=== PATIENT | male | born 1965 | race Caucasian/White ===

== ENCOUNTER 2018-06-02 17:11 | Emergency (ER) | payer BC ==
[2018-06-02] MEDS ORDERED: ASPIRIN 81 MG CHEWABLE TABLET ONE (17:59)
[2018-06-02] MEDS ORDERED: LORazepam 2 MG/ML VIAL ONE (17:59)
[2018-06-02 18:01] LABS: Absolute Lymphocytes (CBC) 2.3 K/uL (0.7-4.9); Absolute Monocytes 0.7 K/uL (0.1-1.3); Absolute Neutrophil 4.6 K/uL (1.8-8.0); Basophils % 0.6 % (0-1.3); Eosinophils % 1.8 % (0-4.4); Hematocrit 41.9 % (39.6-49.0); Lymphocytes % 29.7 % (15.3-44.8); MPV 8.4 fL (7.6-11.3); Monocytes % 9.2 % (3.3-12.3); RBC Red Blood Cell Count 4.67 M/uL (4.33-5.43)
--- NOTE | 2018-06-02 18:03 | RAD REPORT ---
EXAM DESCRIPTION: RAD - Chest Single View - 06/02/2018 5:51 pm CLINICAL HISTORY: Chest pain COMPARISON: None. TECHNIQUE: AP portable chest image was obtained 1748 hours . FINDINGS: Lungs are clear. Heart and vasculature are normal. No measurable pleural effusion and no p neumothorax. No acute bony abnormality seen. Old left clavicle fracture hardware in place. No acute a ortic findings suspected. IMPRESSION: No acute cardiopulmonary process.
[2018-06-02 18:13] LABS: ALT/SGPT 28 U/L (12-78); AST/SGOT 24 U/L (15-37); Alkaline Phosphatase 99 U/L (45-117); BUN Blood Urea Nitrogen 12 mg/dL (7-18); Bicarbonate 27 mmol/L (21-32); Bilirubin Direct 0.1 mg/dL (0-0.2); Bilirubin Total 0.4 mg/dL (0.2-1.0); Glucose Level 90 mg/dL (74-106); Magnesium 2.2 mg/dL (1.8-2.4); NT PRO-BNP 23 pg/mL (<125); Potassium 3.7 mmol/L (3.5-5.1); Protein, Total 7.2 g/dL (6.4-8.2); Sodium Level 141 mmol/L (136-145); Troponin (Emerg Dept Use Only) < 0.02 ng/mL (0.0-0.045)
--- NOTE | 2018-06-02 20:43 | ER ---
Nurse's Notes [facility] Name: Chilango Baker Age: 53 yrs Sex: Male : 1965 Arrival Date: 06/02/2018 Time: 17:12 Bed 20 Private MD: Diagnosis: Chest pain, unspecified Presentation: 06/02 17:16 Presenting complaint: Patient states: left arm tingling started yesterday and today the sv chest pain started about 30 mins ago. Transition of care: patient was not received from another setting of care. Onset of symptoms was June 01, 2018. Care prior to arrival: None. 17:16 Method Of Arrival: Ambulatory sv 17:16 Acuity: GUANACO 3 sv Historical: - Allergies: 17:17 No Known Allergies; sv - PMHx: 17:17 Hypertension; sv - PSHx: 17:17 Cholecystectomy; sv - Immunization history:: Adult Immunizations up to date. - Social history:: Smoking status: unknown. Screenin:49 Abuse screen: Denies threats or abuse. Denies injuries from another. Nutritional ed1 screening: No deficits noted. Tuberculosis screening: No symptoms or risk factors identified. Fall Risk None identified. Assessment: 17:30 General: Appears in no apparent distress. comfortable, Behavior is cooperative, bp appropriate for age, anxious. Pain: Complains of pain in chest Pain does not radiate. Pain began suddenly. Neuro: Level of Consciousness is awake, alert, obeys commands, Oriented to person, place, time, situation, Appropriate for age. Cardiovascular: Rhythm is sinus rhythm. Respiratory: Airway is patent Respiratory effort is even, unlabored, Respiratory pattern is regular, symmetrical. GI: No signs and/or symptoms were reported involving the gastrointestinal system. : No signs and/or symptoms were reported regarding the genitourinary system. EENT: No deficits noted. Derm: No deficits noted. Musculoskeletal: Circulation, motion, and sensation intact. Range of motion: intact in all extremities. 18:17 Reassessment: ALL CURRENT ORDERS COMPLETED, RESULTS PENDING. bp 19:48 Reassessment: Patient appears in no apparent distress at this time. Patient and/or ed1 family updated on plan of care and expected duration. Pain level reassessed. Patient is alert, oriented x 3, equal unlabored respirations, skin warm/dry/pink. Patient states feeling better. Patient states symptoms have improved. 20:23 Reassessment: Patient appears in no apparent distress at this time. Patient and/or ed1 family updated on plan of care and expected duration. Pain level reassessed. Patient is alert, oriented x 3, equal unlabored respirations, skin warm/dry/pink. Patient denies pain at this time. Patient states feeling better. Patient states symptoms have improved. 21:06 Reassessment: Patient appears in no apparent distress at this time. Patient and/or ed1 family updated on plan of care and expected duration. Pain level reassessed. Patient is alert, oriented x 3, equal unlabored respirations, skin warm/dry/pink. Patient denies pain at this time. Patient states feeling better. Patient states symptoms have improved. Vital Signs: 17:38 BP 145 / 94; Pulse 82; Resp 18; Temp 98.7(O); Pulse Ox 98% on R/A; mh5 18:15 BP 141 / 94; Pulse 85; Resp 16; Pulse Ox 96% ; bp 19:48 BP 140 / 112; Pulse 80; Resp 19; Pulse Ox 99% on R/A; Pain 4/10; ed1 20:23 BP 122 / 84; Pulse 81; Resp 19; Pulse Ox 99% on R/A; Pain 0/10; ed1 21:06 BP 125 / 84; Pulse 74; Resp 16; Pulse Ox 100% on R/A; Pain 0/10; ed1 ED Course: 17:12 Patient arrived in ED. as 17:17 Triage completed. sv 17:17 Arm band placed on. sv 17:19 Francois Sibley, SUNNY is Primary Nurse. bp 17:21 Lubna Platt FNP-C is PHCP. snw 17:21 Bashir Victoria MD is Attending Physician. snw 17:36 Initial lab(s) drawn, by me, sent to lab. Inserted saline lock: 20 gauge in right mh5 antecubital area, using aseptic technique. Blood collected. 17:37 Patient has correct armband on for positive identification. Placed in gown. Bed in low mh5 position. Call light in reach. Side rails up X 1. Warm blanket given. cost coordinator on. Pulse ox on. NIBP on. 17:46 EKG done, by technical assistant. reviewed by Lubna SKELTON. 3 17:51 X-ray completed. Portable x-ray completed in exam room. Patient tolerated procedure ml well. 17:51 XRAY Chest (1 view) In Process Unspecified. EDMS 19:49 Awaiting: Repeat cardiac enzymes. ed1 19:49 Primary Nurse role handed off by Francois Sibley, RN ed1 19:49 Natasha Francisco, RN is Primary Nurse. ed1 19:49 No provider procedures requiring assistance completed. ed1 20:24 Repeat lab(s) drawn. by me, sent to lab. EKG done, by ED staff, reviewed by Lubna ed Giulia SKELTON. Patient maintains SpO2 saturation greater than 95% on room air. 21:09 IV discontinued, intact, bleeding controlled, No redness/swelling at site. Pressure ed1 dressing applied. Administered Medications: 17:45 Drug: Aspirin Chewable Tablet 324 mg Route: PO; bp 18:16 Follow up: Response: No adverse reaction bp 17:45 Drug: Ativan 1 mg Route: IVP; Site: right antecubital; bp 18:16 Follow up: Response: No adverse reaction bp Outcome: 20:41 Discharge ordered by MD. eckert 21:09 Discharged to home ambulatory, with significant other. ed1 21:09 Condition: good 21:09 Discharge instructions given to patient, significant other, Instructed on discharge instructions, follow up and referral plans. medication usage, Demonstrated understanding of instructions, follow-up care, medications, Prescriptions given X 1. 21:09 Patient left the ED. ed1 Signatures: Dispatcher [employer] EDKierra Crowe RN RN sv Therrien, Shelly, FNP-C FNP-Evangelina Jiménez Melissa Natasha Francisco, SUNNY CORREA ed1 Harika Quintero [facility] Francois Sibley, RN RN bp Ramona Cano 3 Corrections: (The following items were deleted from the chart) 17:43 17:38 BP 145 / 94; Pulse 82bpm; Resp 18bpm; Pulse Ox 98% RA; mh5 5
--- NOTE | 2018-06-02 20:43 | EDPHYS ---
Physician Documentation [facility] Name: Chilango Baker Age: 53 yrs Sex: Male : 1965 Arrival Date: 06/02/2018 Time: 17:12 Bed 20 Private MD: ED Physician Bashir Victoria HPI: 06/02 17:24 This 53 yrs old Male presents to ER via Ambulatory with complaints of Chest snw Pain, Arm Pain. 17:32 Onset: The symptoms/episode began/occurred suddenly, today. Associated signs and snw symptoms: Pertinent positives: chest pain, tingling in arm and hand intermittently over the past three days, + upper left sided chest pain 8/10 while sitting at work. Pt states he went to his Boss and told him he was driving himself to the ED. Modifying factors: The patient symptoms are alleviated by nothing. The patient has not experienced similar symptoms in the past. The patient has been recently seen by a physician: the patient's primary care provider, with different complaint(s), Adderall refilled. Historical: - Allergies: 17:17 No Known Allergies; sv - PMHx: 17:17 Hypertension; sv - PSHx: 17:17 Cholecystectomy; sv - Immunization history:: Adult Immunizations up to date. - Social history:: Smoking status: unknown. ROS: 17:36 Constitutional: Negative for fever, chills, and weight loss, Eyes: Negative for injury, snw pain, redness, and discharge, ENT: Negative for injury, pain, and discharge, Neck: Negative for injury, pain, and swelling, Respiratory: Negative for shortness of breath, cough, wheezing, and pleuritic chest pain, Abdomen/GI: Negative for abdominal pain, nausea, vomiting, diarrhea, and constipation, Back: Negative for injury and pain, : Negative for injury, bleeding, discharge, and swelling, MS/Extremity: Negative for injury and deformity, Skin: Negative for injury, rash, and discoloration, Neuro: Negative for headache, weakness, numbness, tingling, and seizure. 17:36 Cardiovascular: Positive for chest pain, of the anterior aspect of left upper chest. Exam: 17:36 Constitutional: This is a well developed, well nourished patient who is awake, alert, snw and anxious. Head/Face: Normocephalic, atraumatic. Eyes: Pupils equal round and reactive to light, extra-ocular motions intact. Lids and lashes normal. Conjunctiva and sclera are non-icteric and not injected. Cornea within normal limits. Periorbital areas with no swelling, redness, or edema. ENT: Nares patent. No nasal discharge, no septal abnormalities noted. Tympanic membranes are normal and external auditory canals are clear. Oropharynx with no redness, swelling, or masses, exudates, or evidence of obstruction, uvula midline. Mucous membranes moist. Neck: Trachea midline, no thyromegaly or masses palpated, and no cervical lymphadenopathy. Supple, full range of motion without nuchal rigidity, or vertebral point tenderness. No Meningismus. Chest/axilla: Normal chest wall appearance and motion. Nontender with no deformity. No lesions are appreciated. Cardiovascular: Regular rate and rhythm with a normal S1 and S2. No gallops, murmurs, or rubs. Normal PMI, no JVD. No pulse deficits. Respiratory: Lungs have equal breath sounds bilaterally, clear to auscultation and percussion. No rales, rhonchi or wheezes noted. No increased work of breathing, no retractions or nasal flaring. Abdomen/GI: Soft, non-tender, with normal bowel sounds. No distension or tympany. No guarding or rebound. No evidence of tenderness throughout. Back: No spinal tenderness. No costovertebral tenderness. Full range of motion. Skin: Warm, dry with normal turgor. Normal color with no rashes, no lesions, and no evidence of cellulitis. MS/ Extremity: Pulses equal, no cyanosis. Neurovascular intact. Full, normal range of motion. Neuro: Awake and alert, GCS 15, oriented to person, place, time, and situation. Cranial nerves II-XII grossly intact. Motor strength 5/5 in all extremities. Sensory grossly intact. Cerebellar exam normal. Normal gait. Psych: Awake, alert, with orientation to person, place and time. Behavior, mood, and affect are anxious 17:38 ECG was reviewed by the Attending Physician. [facility] Vital Signs: 17:38 BP 145 / 94; Pulse 82; Resp 18; Temp 98.7(O); Pulse Ox 98% on R/A; mh5 18:15 BP 141 / 94; Pulse 85; Resp 16; Pulse Ox 96% ; bp 19:48 BP 140 / 112; Pulse 80; Resp 19; Pulse Ox 99% on R/A; Pain 4/10; ed1 20:23 BP 122 / 84; Pulse 81; Resp 19; Pulse Ox 99% on R/A; Pain 0/10; ed1 21:06 BP 125 / 84; Pulse 74; Resp 16; Pulse Ox 100% on R/A; Pain 0/10; ed1 MDM: 17:21 Patient medically screened. betzy 20:43 Data reviewed: vital signs, nurses notes. Data interpreted: Pulse oximetry: on room air snw is 99 %. Interpretation: normal. Counseling: I had a detailed discussion with the patient and/or guardian regarding: the historical points, exam findings, and any diagnostic results supporting the discharge/admit diagnosis, lab results, radiology results, the need for outpatient follow up, to return to the emergency department if symptoms worsen or persist or if there are any questions or concerns that arise at home. Special discussion: Based on the history and exam findings, there is no indication for further emergent testing or inpatient evaluation. I discussed with the patient/guardian the need to see the forensic social worker for further evaluation of the symptoms. I discussed with the patient/guardian the need to see the primary care provider for further evaluation of the symptoms. 06/02 17:22 Order name: Basic Metabolic Panel; Complete Time: 18:30 snw 06/02 17:22 Order name: CBC with Diff; Complete Time: 19:07 snw 06/02 17:22 Order name: LFT's; Complete Time: 18:30 snw 06/02 17:22 Order name: Magnesium; Complete Time: 18:30 snw 06/02 17:22 Order name: NT PRO-BNP; Complete Time: 18:30 snw 06/02 17:22 Order name: PT-INR; Complete Time: 18:09 snw 06/02 17:21 Order name: EKG; Complete Time: 17:22 sv 06/02 17:21 Order name: EKG - Nurse/Tech; Complete Time: 17:43 sv 06/02 17:22 Order name: Troponin (emerg Dept Use Only); Complete Time: 18:30 snw 06/02 17:22 Order name: XRAY Chest (1 view); Complete Time: 18:09 snw 04/23 17:22 Order name: Cardiac monitoring; Complete Time: 17:42 snw 06/02 19:11 Order name: Troponin (emerg Dept Use Only): Draw at 2019; Complete Time: 20:41 ed1 06/02 17:22 Order name: IV Saline Lock; Complete Time: 17:43 snw 06/02 17:22 Order name: Labs collected and sent; Complete Time: 17:43 snw 06/02 17:22 Order name: O2 Per Protocol; Complete Time: 17:43 snw 06/02 17:22 Order name: O2 Sat Monitoring; Complete Time: 17:43 snw 06/02 19:08 Order name: Repeat Cardiac Enzymes at: 2019; Complete Time: 20:24 snw 06/02 20:25 Order name: EKG - Nurse/Tech; Complete Time: 20:25 ed1 EC:38 Rate is 81 beats/min. Rhythm is regular. QRS [place] is Normal. SD interval is normal. QRS snw interval is normal. QT interval is normal. No Q waves. T waves are Normal. No ST changes noted. Clinical impression: Normal ECG. Administered Medications: 17:45 Drug: Aspirin Chewable Tablet 324 mg Route: PO; bp 18:16 Follow up: Response: No adverse reaction bp 17:45 Drug: Ativan 1 mg Route: IVP; Site: right antecubital; bp 18:16 Follow up: Response: No adverse reaction bp Disposition: 06/03 12:17 Co-signature as Attending Physician, Bashir Victoria MD I agree with the assessment and betzy plan of care. Disposition: 06/02/18 20:41 Discharged to Home. Impression: Chest pain, unspecified. - Condition is Stable. - Discharge Instructions: Nonspecific Chest Pain, Gastroesophageal Reflux Disease, Adult, Hypertension, Aspirin and Your Heart, Fat and Cholesterol Restricted Diet, [id number]. - Prescriptions for Protonix 40 mg Oral Tablet - take 1 tablet by ORAL route once daily; 30 tablet. - Work release form, Medication Reconciliation Form, Thank You Letter, Antibiotic Education, Prescription Opioid Use form. - Follow up: Private Physician; When: Tomorrow; Reason: Recheck today's complaints, Continuance of care, Re-evaluation by your physician. Follow up: Emergency Department; When: As needed; Reason: Worsening of condition. Signatures: Dispatcher [employer] EDMO Kierra Champagne, RN RN Bashir Nicole MD MD cha Therrien, Shelly, ORACLE FUSION CONSULTANT-C ORACLE FUSION CONSULTANT-Csnw Natasha Francisco, RN RN ed1 Francois Sibley, RN RN bp Corrections: (The following items were deleted from the chart) 06/02 21:09 20:41 06/02/2018 20:41 Discharged to Home. Impression: Chest pain, unspecified. ed1 Condition is Stable. Forms are Medication Reconciliation Form, Thank You Letter, Antibiotic Education, Prescription Opioid Use. Follow up: Private Physician; When: Tomorrow; Reason: Recheck today's complaints, Continuance of care, Re-evaluation by your physician. Follow up: Emergency Department; When: As needed; Reason: Worsening of condition. snw
--- NOTE | 2018-06-03 07:59 | EKG ---
Test Date: 2018-06-02 Test Time: 17:35:57 Service Delivery Consultant: RANDOLPH MEASUREMENT RESULTS: Intervals: Rate: 81 AK: 172 QRSD: 84 QT: 356 QTc: 413 [place]: P: 59 AK: 172 QRS: 42 T: 51 INTERPRETIVE STATEMENTS: Normal sinus rhythm Normal ECG No previous ECG available for comparison Electronically Signed On 06-03-18 07:58:52 CDT by Jose Loo
--- NOTE | 2018-06-04 08:40 | EKG ---
Test Date: 2018-06-02 Test Time: 20:20:55 Scout Executive: OJSEP MEASUREMENT RESULTS: Intervals: Rate: 74 WA: 178 QRSD: 82 QT: 374 QTc: 415 [place]: P: 55 WA: 178 QRS: 42 T: 49 INTERPRETIVE STATEMENTS: Normal sinus rhythm Normal ECG Compared to ECG 06/02/2018 17:35:57 No significant changes Electronically Signed On 06-04-18 08:37:00 CDT by Filippo Phillips
== END 2018-06-02 21:09 | disposition home or self-care (01) ==
LOC: ER 17:11
DX: R07.9 Chest pain, unspecified (principal); I10 Essential (primary) hypertension
CPT/HCPCS: 36415; 71045; 80048; 80076; 83735; 83880; 84484; 85025; 85610; 93005; 96374; 99285